=== PATIENT | female | born 1995 | race Caucasian/White ===

== ENCOUNTER 2017-01-16 18:48 | Emergency (ER) | payer OTHER ==
[~2017-01-16] VITALS: Ht 156.2 cm; Wt 52.2 kg
[~2017-01-16 18:48] MED LIST: MOTRIN800 MG PO; PENICILLIN V P500 MG PO; TRAMADOL50 MG PO
[2017-01-16 20:09] LABS: ABSOLUTE BASOPHIL COUNT 0.1 /CUMM (0.0-0.2); ABSOLUTE EOSINOPHIL COUNT 0 /CUMM (0.0-0.7); ABSOLUTE GRANULOCYTE CT 9.1 /CUMM (1.4-6.5); ABSOLUTE LYMPH COUNT 1.5 /CUMM (1.2-3.4); ABSOLUTE MONOCYTE COUNT 0.8 /CUMM (0.10-0.60); BASOPHIL % 0.5 % (0.0-2.0); EOSINOPHIL % 0.2 % (0-5); GRANULOCYTE % 79.3 % (42.2-75.2); HEMATOCRIT 41.7 % (37-47); MEAN CORPUSCULAR HGB 30.4 PG (27.0-31.0); MEAN CORPUSCULAR HGB CONC 33.2 G/DL (33.0-37.0); MEAN CORPUSCULAR VOLUME 91.6 FL (81.0-99.0); MEAN PLATELET VOLUME 8.5 FL (7.4-10.4); PLATELET COUNT 207 /CUMM (130-400); RBC DISTRIBUTION WIDTH 13.2 % (11.5-14.5); RED BLOOD CELL CT 4.55 /CUMM (4.20-5.40); WHITE BLOOD CELL COUNT 11.5 /CUMM (4.8-10.8)
[2017-01-16] MEDS ORDERED: ORSYTHIA-28 TA1 EACH PO (20:40)
[2017-01-16 20:43] VITALS: BP 138/61
--- NOTE | 2017-01-16 20:53 | ED GI/GU/ABDOMINAL COMPLAINT ---
History of Present Illness General Chief Complaint: Abdominal Pain/Flank Pain Stated Complaint: PT THINKS SHE HAS A KIDNEY INFECTION Source: patient Exam Limitations: no limitations Vital Signs & Intake/Output Vital Signs & Intake/Output Vital Signs Date Time Temp Pulse Resp B/P B/P Pulse O2 O2 Flow FiO2 Mean Ox Delivery Rate 01/16 2043 99.1 83 138/61 98 01/16 1946 101.1 01/16 1933 101.1 95 18 145/99 99 Room Air Allergies Coded Allergies: No Known Allergies (01/16/17) Reconcile Medications Ciprofloxacin HCl (Cipro) 500 MG TABLET 1 TAB PO BID pyelonephritis Levonorgestrel-Ethin Estradiol (Orsythia-28 Tablet) 0.1 MG-20 MCG TABLET 1 TAB PO DAILY CONTROL (Reported) Ondansetron (Zofran Odt) 4 MG TAB.RAPDIS 1 TAB SL TID nausea Triage Note: TRIAGE: PT TO ER C/C ?KIDNEY INFECTION. REPORTS S/S OF LOW ABD PAIN, LOW BACK PAIN, CHILLS, AND HOT FLASHES. ONSET FRIDAY. HX OF KIDNEY INFECTION WITH SIMILIAR S/S. TEMP 101.1 AT TRIAGE. MEDICATED WITH TYLENOL AT TRIAGE PER REQUEST. URINE SPECIMEN REQUESTED FROM TRIAGE. Triage Nurses Notes Reviewed? yes ? n Is pt currently ? No Onset: Abrupt Duration: day(s): (4), constant, continues in ED Timing: recent history Location: lower abd Radiation: back Activities at Onset: none No Modifying Factors: none HPI: 21-year-old female comes into emergency room for further evaluation of lower abdominal pain. Symptoms of a going on for the past 4 days. She reports some associated low back pain and fever chills and some intermittent vomiting. History of kidney infections and this feels similar. Some mild increased frequency with urination today. Denies any dysuria. Denies any discharge. Denies any changes in appetite. Patient had vomiting on Friday but has not had any vomiting since. (TONYA PERAZA) Past History Travel History Traveled to [place] past 21 day No Medical History Any Pertinent Medical History? 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 No (TONYA PERAZA) Review of Systems Review of Systems Constitutional: Reports: see HPI. EENTM: Reports: no symptoms. Respiratory: Reports: no symptoms. Cardiovascular: Reports: no symptoms. GI: Reports: see HPI. Genitourinary: Reports: see HPI. Musculoskeletal: Reports: no symptoms. Skin: Reports: no symptoms. Neurological/Psychological: Reports: no symptoms. Hematologic/Endocrine: Reports: no symptoms. Immunologic/Allergic: Reports: no symptoms. All Other Systems: Reviewed and Negative (TONYA PERAZA) Physical Exam Physical Exam General Appearance: well developed/nourished, alert, awake Head: atraumatic, normal appearance Eyes: Bilateral: normal appearance. Ears, Nose, Throat, Mouth: hearing grossly normal, moist mucous membrane Neck: normal inspection, full range of motion Respiratory: normal breath sounds, no respiratory distress Cardiovascular: regular rate/rhythm Gastrointestinal: soft, tenderness (suprapubic), negative McBurney's point Back: normal inspection Extremities: normal range of motion Neurologic/Psych: awake, alert, oriented x 3, normal gait, normal mood/affect Skin: intact, normal color Core Measures ACS in differential dx? No Severe Sepsis Present: No Septic Shock Present: No (TONYA PERAZA) Progress Differential Diagnosis: appendicitis, biliary colic, diverticulitis, ectopic , ischemic bowel, intrauterine , kidney stone, ovarian cyst, ovarian torsion, pancreatitis, PID/cervicitis, peptic ulcer, PUD/GERD, perforated viscous, threatened AB, UTI/pyelo Plan of Care: Orders Procedure Date/time Status Add-on Test (ER Only) 01/16 2033 Active CULTURE,URINE 01/16 2003 Active URINE 01/17 1936 Complete URINALYSIS 01/17 1936 Complete CBC WITHOUT DIFFERENTIAL 01/17 1936 Complete BASIC METABOLIC PANEL 01/17 1936 Complete Laboratory Tests 01/16/172002: Urine Color YEL, Urine Clarity CLEAR, Urine pH 6.5, Ur Specific [place] 1.015, Urine Protein NEG, Urine Ketones NEG, Urine Nitrite NEG, Urine Bilirubin NEG, Urine Urobilinogen 0.2, Ur Leukocyte Esterase SMALL H, Ur Microscopic SEDIMENT EXAMINED, Urine RBC 1-3, Urine WBC 25-50 H, Ur Epithelial Cells FEW, Urine Bacteria MOD H, Urine Hemoglobin TRACE-INTACT, Urine Glucose NEG, Urine Test NEGATIVE 01/16/172000: Anion Gap 11, Estimated GFR > 60, BUN/Creatinine Ratio 20.0, Glucose 90, Calcium 9.7, CBC w Diff NO MAN DIFF REQ, RBC 4.55, MCV 91.6, MCH 30.4, RDW 13.2, MPV 8.5 , Gran % 79.3 H, Lymphocytes % 12.8 L, Monocytes % 7.2, Eosinophils % 0.2, Basophils % 0.5, Absolute Granulocytes 9.1 H, Absolute Lymphocytes 1.5, Absolute Monocytes 0.8 H, Absolute Eosinophils 0, Absolute Basophils 0.1, PUBS MCHC 33.2 Microbiology 01/16 2003 URINE ROUT: Urine Culture - RECD Initial ED EKG: none (CHANTELL MOON,TONYA) Departure Departure Disposition: HOME OR SELF CARE Condition: Stable Clinical Impression Primary Impression: Pyelonephritis Referrals: LION FIELDS,DAMIAN Rodríguez (PCP/Family) Additional Instructions: Take ciprofloxacin and Zofran as prescribed. Return immediately if any inability to keep medication down, increased fever, increased pain, or any other concerns. Please go over all results of today's visit with your primary care doctor. Contact your primary care doctor to let them know you were here in the emergency room. There may be nonspecific findings which may not be related to your visit today here in the emergency room but may require further evaluation and chronic monitoring by your primary care doctor. If you had a laceration today the chance of foreign body always remains. You should follow-up with your primary care doctor for recheck in 3-5 days for a wound check. If you had an x-ray done there is a chance that a fracture could have been missed on initial read and you should follow-up with your primary care doctor for repeat x-rays if symptoms persist. If your blood pressure was elevated here in the emergency room please have rechecked by her primary care doctor within the next 48 hours by your primary care doctor. If you were prescribed a narcotic here in the emergency room or any type of controlled substances you're not allowed to drive while taking this medication or operate any type of heavy machinery. Narcotics can make you feel lightheaded dizziness nausea and can cause constipation. You may need to picker a stool softener. Thank you for choosing [facility] emergency room. Please return to the emergency room immediately if you have any other concerns worsening of symptoms. Departure Forms: Customer Survey D/C INS-APPENDICITIS EXCLUSION General Discharge Information Prescriptions: Current Visit Scripts Ciprofloxacin HCl (Cipro) 1 TAB PO BID #14 TAB Ondansetron (Zofran Odt) 1 TAB SL TID #10 TAB Comments 01/16/2017 9:22:28 PM Patient clinically looks well. Patient is nontoxic-appearing. Patient is in no apparent distress. Resting comfortable and room. Discussed possibility of early appendicitis but extending to the patient unlikely at this time. Negative McBurney's point. No suspicion for ovarian torsion. Patient looks well on discharge. Fever improved. Symptoms most consistent with pyelonephritis. Patient able to tolerate oral pill here in the emergency room. Patient will return if any concerns worsening symptoms. (CHANTELL MOON,TONYA) PA/NORMALIZER Co-Sign Statement Statement: ED Attending supervision documentation- I saw and evaluated the patient. I have also reviewed all the pertinent lab results and diagnostic results. I agree with the findings and the plan of care as documented in the PA's/NORMALIZER's documentation. x I have reviewed the ED Record and agree with the PA's/NORMALIZER's documentation. [] Additions or exceptions (if any) to the PAs/NORMALIZER's note and plan are summarized below: [] (ABBIE FIELDS,LYNN)
[2017-01-16] MEDS ORDERED: ZOFRAN ODT4 M1 SL (21:14)
[2017-01-16] MEDS ORDERED: CIPRO500 M1 PO (21:14)
== END 2017-01-16 21:22 ==
LOC: ERH 18:48
PROVIDERS: Physician Assistant Medical
DX: N12 Tubulo-interstitial nephritis, not specified as acute or chronic (principal)
CPT/HCPCS: 81001; 81025; 87086